=== PATIENT | male | born 1955 | race Two or more races ===

== ENCOUNTER 2018-06-18 08:03 | Emergency (ER) | payer OTHER ==
[~2018-06-18] VITALS: Ht 167.6 cm; Wt 86.2 kg
[~2018-06-18 08:03] MED LIST: ALPRAZOLAM0.25 MG PO; AMOX1TAB12 PO; ATIVAN0.5 M1; ATIVAN1 M1; AVAPRO150 MG PO; DIAZEPAM10 MG PO; FLEXERIL10 MG PO; KETO10TA2 PO; LEXAPRO20 MG PO; METFORMIN HCL500 M2 PO; MOBIC15 MG PO; MOTRIN800 MG PO; ORPH100T PO; PROTONIX40 MG; RESTORIL30 MG; ULTRACET PO; XOPENEX HFA15 GM IH; ZANAFLEX2 M2 PO
== END 2018-06-18 09:49 | disposition home or self-care (01) ==
LOC: ER 08:03
DX: H10.13 Acute atopic conjunctivitis, bilateral (principal); M54.2 Cervicalgia

== ENCOUNTER 2019-06-05 09:16 | Emergency (ER) | payer OTHER ==
[~2019-06-05] VITALS: Ht 167.6 cm; Wt 86.2 kg
[2019-06-05] MEDS ORDERED: FLONASE16 GM NASAL (11:23)
[2019-06-05] MEDS ORDERED: CLARITIN-D 241 EACH PO (11:23)
[2019-06-05] MEDS ORDERED: TOBRAMYCIN-DEXAM5 ML OP (11:24)
== END 2019-06-05 13:54 | disposition home or self-care (01) ==
LOC: ER 09:16
DX: J30.89 Other allergic rhinitis (principal)